=== PATIENT | male | born 1945 ===

== ENCOUNTER 2020-11-22 15:20 | Outpatient (REF) | payer BC, MEDICARE, SELFPAY ==
[2020-11-22 16:34] LABS: BUN 24 mg/dL (7-18); CREATININE 1.2 mg/dL (0.70-1.30); Calcium 8.3 mg/dL (8.5-10.1); Chloride 110 mmol/L (98-107); Estimated GFR 58.86 (mL/min/1.73m2); Glucose 98 mg/dL (74-106); NT-proBNP 13607 pg/mL (<300); Potassium 3.8 mmol/L (3.5-5.1); Sodium 148 mmol/L (136-145)
== END 2020-11-22 15:21 | disposition home or self-care (01) ==
LOC: LBN 15:20
PROVIDERS: PCP Nurse Practitioner; Visit Provider Nurse Practitioner
DX: I11.9 Hypertensive heart disease without heart failure (principal); I47.2 Ventricular tachycardia; I21.3 ST elevation (STEMI) myocardial infarction of unspecified site
CPT/HCPCS: 80048; 83880